=== PATIENT | male | born 1980 | race Caucasian/White ===

== ENCOUNTER 2019-07-10 17:50 | Observation (INO) ==
[2019-07-11] MEDS ORDERED: Morphine Sulfate 2 MG/ML SYRINGE IVP ONE (00:29)
[2019-07-11 05:56] LABS: Basophils % 0.4 %; Eosinophils # 0.1 K/mcL (0.0-0.6); Eosinophils % 0.9 %; Hematocrit 42.1 % (37.5-50.1); Hemoglobin 14.4 g/dL (12.9-16.9); Immature Granulocytes % 0.4 % (0-4); Lymphocytes # 3.6 K/mcL (0.6-4.6); Lymphocytes % 36.9 %; Mean Corpuscular HGB Conc 34.2 g/dL (31.6-35.5); Mean Corpuscular Hemoglobin 31.2 pg (28.0-33.3); Mean Corpuscular Volume 91.1 fL (83.0-100.0); Monocytes # 0.8 K/mcL (0.0-1.3); Monocytes % 7.9 %; Neutrophils # 5.3 K/mcL (1.6-8.9); Platelet Count 237 K/mcL (140-400); Red Blood Count 4.62 M/mcL (4.19-5.50); Red Cell Distribution Width 12.8 % (11.5-14.5); Segmented Neutrophils % 53.5 %; White Blood Count 9.8 K/mcL (4.3-11.1)
[2019-07-11 06:15] LABS: BUN/Creatinine Ratio 16 (6-26); Blood Urea Nitrogen 14 mg/dL (6-20); Calcium 9.1 mg/dL (8.6-10.3); Carbon Dioxide 29 mEq/L (23-29); Chloride 107 mEq/L (98-107); Glucose 102 mg/dL (70-105); Osmolality,Calculated 289 (280-300); Potassium 3.4 mEq/L (3.5-5.1); Sodium 139 mEq/L (136-145); eGFR For African Americans > 60 (> 60); eGFR For Non-African Americans > 60 (> 60)
[2019-07-11] MEDS ORDERED: Naloxone 0.4 MG/ML INJ IVP PRN (06:49)
--- NOTE | 2019-07-11 06:59 | Internal Med History&Physical ---
Date of Encounter: 07/11/19 Time of Encounter: 06:00 Internal Medicine - H&P: HPI Chief complaint: Chest Pain Admitted From: Hospital to Hospital Transfer Plans for Post Hospital Care: Home History of present illness: Mr. Yoon is a 38 year old male with past medical history significant for CHF, asthma, crohns disease, anxiety, and depression who presents as hospital transfer from [facility] ER for complaints of intermittent substernal chest pain for past 4 days getting progressively worse. Pain ra diates across chest and down both arms and is rated at 8/10 at its worst and described as sharp. Pain is associated with shortness of breath and diaphoresis. Received aspirin and nitro at sending ER which he reports improved his pain. Sending ER obtained a CBC, CMP, CPK, D dimer, lipase, magnesium, BNP, PT/INR, and troponin all of which were unremarkable besides a CPK of 414. Sending ER also obtained a chest xray which showed a negative portable chest. Sending ER reported EKG as sinus rhythm with normal ST segments. Currently patient reports only minimal chest pain. Currently denies any headache, numbness, tingling, shortness of breath, abdominal pain, bowel or bladder changes. 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 Reports having an echocardiogram and heart catheterization completed at this same time, reports cath being normal. Was supposed to follow up with Cardiology afterwards but never did. Denies any previous history of stress t esting. Does occasionally follow with a PCP. Reports smoking daily but denies any alcohol or drug use. Past Med Surg Social Fam HX - Past Medical History Medical history: asthma, CHF, other Additional medical history: crohns Psychiatric history: anxiety, depression - Past Surgical History Surgical History: appendectomy, cholecystectomy - Social History Smoking Status: Current every day smoker Smokeless Tobacco Status: No Alcohol use: none Drug use: none - Family History Mother Living Status: Still Living Hx Family Respiratory Disorders: Yes (COPD) Hx Family Cancer: No Hx Family GI Disorders: No Hx Family Genitourinary Disorders: No Hx Family Endocrine Disorder: Yes (DM) Hx Family Musculoskeletal Disorders: Yes (arthritis.) Hx Family Neuromuscular Disorders: No Hx Family Neurologic Disorders: No Hx Family HEENT Disorders: No Hx Family Autoimmune Disorders: No Hx Family Reproductive Disorders: No Hx Family Psychosocial Disorders: No Hx Family Medical Disorders: No Father Living Status: Still Living Hx Family Cardiac Disorders: Yes (ND, Stents, CABG, Pacemaker.) Hx Family Respiratory Disorders: No Hx Family Cancer: Yes (Lung CA) Hx Family GI Disorders: No Hx Family Genitourinary Disorders: No Hx Family Endocrine Disorder: No Hx Family Musculoskeletal Disorders: No Hx Family Neuromuscular Disorders: No Hx Family Neurologic Disorders: Yes (seizures) Hx Family HEENT Disorders: No Hx Family Autoimmune Disorders: No Hx Family Reproductive Disorders: No Hx Family Psychosocial Disorders: No Hx Family Medical Disorders: No Internal Medicine - H&P: Meds Fluoxetine 20 mg PO DAILY 07/10/19 [History] Proair Hfa 90 mcg PRN 07/10/19 [History] QVAR 80 mcg REDIHALER 1 puff DAILY 07/10/19 [History] Allergy/AdvReac Type Severity Reaction Status Date / Time egg AdvReac Intermediate Nausea Verified 07/10/19 23:21 All Systems PM: A 10-system review of systems was performed and is negative for pertinent findings except as documented above in the HPI. - Constitutional Vitals: Temp Pulse Resp BP Pulse Ox 97.8 F 68 15 130/83 96 07/11/19 03:33 07/11/19 03:33 07/11/19 03:33 07/11/19 03:33 07/11/19 03:33 Exam: General: Alert and oriented. Skin:Normal color, no rash, no lesions. HEENT:Pupils equal, round and reactive. Cardiovascular:Normal S1 & S2, no rubs, murmurs or gallops. No JVD. Pulse regular. Lungs:Breath sounds decreased, no wheezes or crackles. Abdomen:Soft, non-tender, no rigidity. Extremities:No deformity, no edema or tenderness, no joint swelling or clubbing. Neurological:Normal cognition and motor skills. Pulses:Carotid and radial pulses normal +2. Rest of the physical exam is non contributory. Internal Med - H&P Results - Labs CBC & Chem 7: 07/11/19 05:20 07/11/19 05:20 Labs: Short CBC 07/11/19 Range/Units 05:20 WBC 9.8 (4.3-11.1) K/mcL Hgb 14.4 (12.9-16.9) g/dL Hct 42.1 (37.5-50.1) % Plt Count 237 (140-400) K/mcL Neutrophils # 5.3 (1.6-8.9) K/mcL BMP 07/11/19 05:20 Sodium 139 Potassium 3.4 L Chloride 107 Carbon Dioxide 29 BUN 14 Creatinine 0.89 Glucose 102 Calcium 9.1 Cardiac Enzymes 07/10/19 07/11/19 Range/Units 23:39 05:20 Troponin I < 0.03 < 0.03 (< 0.04) ng/mL - Assessment and Plan (1) Chest pain Current Visit: Yes Status: Acute Assessment and plan: Reports intermittent substernal chest pain radiating across chest and both arms over past 4 days getting progressively worse. Pain improved with nitroglycerin and aspirin received a sending ER. Troponin obtained sending ER negative, serial troponins ordered. Continuous cardiac monitoring. Echocardiogram ordered. Cardiac stress test ordered. Qualifiers: Chest pain type: unspecified Qualified Code(s): R07.9 - Chest pain, unspecified (2) Congestive heart failure Current Visit: Yes Status: Chronic Assessment and plan: Reports history of congestive heart failure following antifreeze poisoning around 8 years ago. Was supposed to routinely follow-up with cardiology but never did. Plan as stated above. Qualifiers: Qualified Code(s): I50.9 - Heart failure, unspecified (3) Anxiety and depression Current Visit: Yes Status: Chronic Assessment and plan: Continue home medications once verified. (4) Tobacco abuse Current Visit: Yes Status: Chronic Assessment and plan: Cessation strongly encouraged. (5) Asthma Current Visit: Yes Status: Chronic Assessment and plan: Not in acute exacerbation. Resume home medications once verified. Qualifiers: Asthma complication type: unspecified Qualified Code(s): J45.909 - Unspecified asthma, uncomplicated - Time Spent With Patient Total time spent is greater than 50% in coordination of care (as documented) at patient's floor/unit and/or counseling patient:
[2019-07-11 15:47] VITALS: BP 151/79
[2019-07-11] MEDS ORDERED: Isovue-370 500 ML BOTTLE IVP ONE (15:55)
--- NOTE | 2019-07-11 16:06 | Discharge Summary ---
Date of Encounter: 07/11/19 Time of Encounter: 16:01 - Discharge Diagnosis (1) Chest pain Priority: Primary Status: Acute Assessment and Plan: atypical chest pain, reproducible to palpation. Qualifiers: Chest pain type: unspecified Qualified Code(s): R07.9 - Chest pain, unspecified (2) Congestive heart failure Priority: Secondary Status: Chronic Assessment and Plan: patient not on exacerbation. euvolemic. EF:60% Qualifiers: Heart failure type: unspecified Heart failure chronicity: chronic Qualified Code(s): I50.9 - Heart failure, unspecified (3) Anxiety and depression Priority: Secondary Status: Chronic (4) Tobacco abuse Priority: Secondary Status: Chronic (5) Asthma Priority: Secondary Status: Chronic Qualifiers: Asthma severity: unspecified severity Asthma persistence: unspecified Asthma complication type: unspecified Qualified Code(s): J45.909 - Unspecified asthma, uncomplicated (6) Intellectual disability Priority: Secondary Status: Chronic Hospital course: Mr. Yoon is a 38 year old male past medical history significant for CHF, asthma, crohns disease, anxiety, and depression who presents as hospital transfer from [facility] ER for complaints of intermittent substernal chest pain for past 4 days getting progressively worse. Pain radiates across chest and down both arms and is rated at 8/10 at its worst and described as sharp. patient admitted to the hospital due to chest pain r/o acs. patient underwent stress test: negative for ischemia. During my evaluation patient reported non radiating, 7/10 pressure like chest pain, reproducible to palpation. CTA chest done: No acute traumatic injury to the aorta. No evidence for intramural hematoma, aneurysmal dilatation or dissection. Patient hemodynamically stable to be discharged home. - Time Spent with Patient Total time spent providing and/or coordinating discharge services: Time spent: D/C greater than 8 hours after Admission - Discharge Medications Prescriptions: New Ibuprofen [Motrin] 800 mg PO Q8HR 30 Days #30 tablet Continued FLUoxetine HCl [Prozac] 20 mg PO QAM Beclomethasone Dipropionate [QVAR 80 mcg REDIHALER] 2 puff PO BID Albuterol Sulfate [Proair Hfa] 2 puff IH Q4-6H PRN PRN Reason: Shortness Of Breath Home Medications: Albuterol Sulfate [Proair Hfa] 2 puff IH Q4-6H PRN 07/10/19 [History] Beclomethasone Dipropionate [QVAR 80 mcg REDIHALER] 2 puff PO BID 07/10/19 [History] FLUoxetine HCl [Prozac] 20 mg PO QAM 07/10/19 [History] Ibuprofen [Motrin] 800 mg PO Q8HR 30 Days #30 tablet 07/11/19 [Rx] Allergies/Adverse Reactions: Allergy/AdvReac Type Severity Reaction Status Date / Time egg AdvReac Intermediate Nausea Verified 07/10/19 23:21 Date of admission: 07/10/19 21:44 Primary care physician: PCP NONE - Constitutional Vitals: Temp Pulse Resp BP Pulse Ox 98.5 F 79 18 151/79 97 07/11/19 15:46 07/11/19 15:46 07/11/19 15:46 07/11/19 15:46 07/11/19 15:46 Exam: Vitals: Reviewed General: Alert and oriented x4. In no distress Skin: Normal color, no rash, no lesions. HEENT: EOM, pupils equal, round and reactive. Cardiovascular: RRR, normal S1 & S2, no rubs, murmurs or gallops. Lungs: CTA b/l, no wheezes or crackles. Abdomen: Soft, non-tender, no rigidity. Extremities: No deformity, no edema or tenderness, no joint swelling or clubbing. reproducible pain on the ant chest wall. Neurological: Normal cognition and motor skills. Rest of the physical exam is non contributory - Patient Status Disposition: Home, Self-Care Condition: Good Functional capacity at discharge: independent ambulation Overall status at discharge: patient is progressing back to baseline - Discharge Instructions Follow Up With: Rosenda Castro CNP [Advanced Practice Nurse] - 07/18/19 9:00 am - Diet and Activity Activity: resume usual activities as tolerated Diet: advance to your usual diet
[2019-07-11] MEDS ORDERED: *HR* Heparin 5,000 UNIT/ML VIAL SQ SCH (18:00)
== END 2019-07-11 17:31 | disposition home or self-care (01) ==
LOC: 3BNU
PROVIDERS: ADMIT Internal Medicine; ATTEND Internal Medicine